=== PATIENT | female | born 1985 | race Caucasian/White ===

== ENCOUNTER 2019-10-01 13:21 | Emergency (ER) | payer BC ==
[~2019-10-01] VITALS: Ht 157.5 cm; Wt 74.4 kg
--- NOTE | 2019-10-01 13:45 | NUR ---
Pt c/o sore throat with cough x6 days, productive with green mucous, nasal congestion.
--- NOTE | 2019-10-01 16:00 | NUR ---
Gave pt RX and d/c instructions, verbalized understanding.
== END 2019-10-01 16:52 | disposition home or self-care (01) ==
LOC: ER 13:21
DX: J02.8 Acute pharyngitis due to other specified organisms (principal); B97.89 Other viral agents as the cause of diseases classified elsewhere; J40 Bronchitis, not specified as acute or chronic; E11.9 Type 2 diabetes mellitus without complications; Z88.2 Allergy status to sulfonamides
CPT/HCPCS: 36415; 86403; 87070; A4663